=== PATIENT | male | born 1980 | race Caucasian/White ===

== ENCOUNTER 2020-07-15 16:37 | Emergency (ER) | payer SELFPAY ==
[~2020-07-15] VITALS: Ht 188 cm; Wt 102.8 kg
[2020-07-15] MEDS ORDERED: PENI500T PO (17:04)
[2020-07-15] MEDS ORDERED: CHLO15MO2 SWSP (17:04)
[2020-07-15] MEDS ORDERED: NAPR-514 PO (17:04)
--- NOTE | 2020-07-15 17:04 | PHYS DOC ---
Past History Past Medical History: No Pertinent History (ADOLFO CARRION APRN) Past Surgical History: Other Additional Past Surgical Histo: ADNOIDECTOMY; RIGHT EAR SURGERY (ADOLFO CARRION APRN) Alcohol Use: None (ADOLFO CARRION APRN) General Adult EDM: Chief Complaint: DENTAL PROBLEM HPI: HPI: Patient is a 39-year-old male who presents emergency department with complaints of lower posterior left and right dental pain for the last 3 days. Patient states he has been having problems with dental pain for the last year off and on but this time the pain has become more severe over the last 3 days. He denies any fever, nausea, vomiting, sore throat, ear pain, headache, cough, shortness of breath, body aches, or fatigue. Patient currently rates his pain a 10 out of 10 on the pain scale, he reports taking ibuprofen with some relief in his pain. Patient states he is tried taking Tylenol with little to no relief of his pain. (ADOLFO CARRION APRN) Review of Systems: Review of Systems: Complete ROS is negative unless otherwise noted in HPI. (ADOLFO CARRION APRN) Allergies: Allergies: Allergies Coded Allergies Type Severity Reaction Last Updated Verified No Known Drug Allergies 07/15/20 No (ADOLFO CARRION APRN) Physical Exam: PE: See Above Constitutional: Well developed, well nourished, no acute distress, non-toxic appearance. [] HENT: Normocephalic, atraumatic, bilateral external ears normal, nose normal; moist mucous membranes, dental decay with broken teeth present in the right lower quadrant and lower left quadrant, gingival erythema and edema to the lower posterior gingiva bilaterally, no palpable or visible dental abscess [] Eyes: PERRLA, EOMI, conjunctiva normal, no discharge. [] Neck: Normal range of motion, supple, nontender, no stridor. [] Cardiovascular:Heart rate regular rhythm Lungs & Thorax: Respirations even and unlabored, no retractions, no respiratory distress Skin: Warm, dry, no erythema, no rash. [] Neurologic: Alert and oriented X 3, no focal deficits noted. [] Psychologic: Affect normal, judgement normal, mood normal. [] (ADOLFO CARRION APRN) Current Patient Data: Vital Signs: Vital Signs Date Time Temp Pulse Resp B/P (MAP) Pulse Ox O2 Delivery O2 Flow Rate FiO2 07/15/20 16:50 97.7 108 18 136/85 (102) 98 (ADOLFO CARRION APRN) EKG: EKG: [] (ADOLFO CARRION APRN) Radiology/Procedures: Radiology/Procedures: [] (ADOLFO CARRION APRN) Heart Score: Risk Factors: Risk Factors: DM, Current or recent (<one month) smoker, HTN, HLP, family history of CAD, obesity. Risk Scores: Score 0 - 3: 2.5% MACE over next 6 weeks - Discharge Home Score 4 - 6: 20.3% MACE over next 6 weeks - Admit for Clinical Observation Score 7 - 10: 72.7% MACE over next 6 weeks - Early Invasive Strategies (ADOLFO CARRION APRN) Course & Med Decision Making: Course & Med Decision Making Pertinent Labs and Imaging studies reviewed. (See chart for details) 39-year-old male presented to the emergency department complaints of increased dental pain over the last 3 days. Physical exam did not reveal a visible or palpable dental abscess however there is a great amount of gingival erythema and edema with several broken teeth and obvious dental decay. We will treat the patient for dental infection and gingivitis due to these findings. I encouraged patient to follow-up with a dentist for further treatment of his dentalgia and dental decay. I advised the patient that I do not prescribe narcotic medications for treatment of dental pain. Will prescribe penicillin and naproxen for the patient, advised the patient that he may also take Tylenol with the naproxen but should not take ibuprofen while taking naproxen. Patient verbalized an understanding of home care, medications, follow-up, and return to ED instructions and was in agreement with the plan of care. [] (ADOLFO CARRION APRN) Dragon Disclaimer: Kristian Disclaimer: This electronic medical record was generated, in whole or in part, using a voice recognition dictation system. (ADOLFO CARRION APRN) Departure Departure: Impression: Primary Impression: Dentalgia Additional Impressions: Infected dental caries Gingivitis, acute Disposition: 01 DC HOME SELF CARE/HOMELESS Condition: STABLE Referrals: PCP,NO (PCP) Patient Instructions: Dental Caries, Dental Pain, [id number], Gingivitis, E asy-to-Read Additional Instructions: Fill prescription(s) and use as directed. Follow up with dentist using the referral list provided. Return to the ER if symptoms worsen. Scripts Chlorhexidine Gluconate (PERIDEX) 15 Ml Mouthwash 15 ML SWSP BID for gingivitis for 30 Days, #473 ML 0 Refills Be sure to brush your teeth before using this medication as it can cause staining. Do not eat or drink for at least 30 minutes after use. Prov: ADOLFO CARRION APRN 07/15/20 Naproxen (NAPROXEN) 500 Mg Tablet 1 TAB PO BID for pain for 10 Days, #20 TAB 0 Refills Prov: ADOLFO CARRION APRN 07/15/20 Penicillin V Potassium (PENICILLIN V POTASSIUM) 500 Mg Tablet 1 TAB PO QID for dental infection for 7 Days, #28 TAB 0 Refills Prov: ADOLFO CARRION APRN 07/15/20 Attending Signature Attending Signature I have reviewed the PA/HOUSING RELOCATION's note and plan of care. I was available for consultation as needed during the patient's visit in the emergency department. I agree with the clinical impression, plan, and disposition. (MAURI MILLS DO) ADOLFO CARRION APRN Jul 15, 2020 17:04 MAURI MILLS DO Jul 16, 2020 03:49
[2020-07-15 17:10] VITALS: BP 114/86
== END 2020-07-15 17:12 | disposition home or self-care (01) ==
LOC: ER 16:37
DX: K02.9 Dental caries, unspecified (principal); K05.00 Acute gingivitis, plaque induced
CPT/HCPCS: 99283

== ENCOUNTER 2020-08-04 22:38 | Emergency (ER) | payer SELFPAY ==
[~2020-08-04] VITALS: Ht 188 cm; Wt 102.8 kg
[~2020-08-04 22:38] MED LIST: CHLO15MO2 SWSP; NAPR-514 PO; PENI500T PO
[2020-08-04 23:00] VITALS: BP 123/79
[2020-08-05] MEDS ORDERED: DEXAMETHASONE 4 MG TABLET PO ONE
[2020-08-05] MEDS ORDERED: [UNRECOGNIZED DRUG - OTHER] IJ ONE
[2020-08-05] MEDS ORDERED: AMOXICILLIN/K CLAV 875/125MG TABLET. PO ONE
--- NOTE | 2020-08-05 00:22 | PHYS DOC ---
Past History Past Medical History: No Pertinent History Past Surgical History: Other Additional Past Surgical Histo: ADNOIDECTOMY; RIGHT EAR SURGERY Alcohol Use: None General Adult EDM: Chief Complaint: DENTAL PROBLEM HPI: HPI: Patient is a 39 year old male who presents with right lower gum and teeth pain. Patient has been complaining of chronic lower gum and teeth pain for the past few years. He was last seen at [facility] on 07/15/20 for similar pain and discharged with Penicillin VK and chlorhexidine wash. He started takin gthe antibiotics for a day or two then forgot about it. He never followed up with the dentist. Yesterday, pt started to note increasing pain in the right lower jaw along gum line and felt a "knot" on the outside of his cheek. He restarted his penicillin prescription for the past 2 days and ibuprofen with no improvement in pain. He describes the pain as a sharp pain, like a "hot iron" sitting in his mouth. Pain worsens with talking or pressure to the gums. Pt denies fever, cough, congestion, sore throat, nausea, or vomiting. Review of Systems: Review of Systems: Constitutional: Denies fever or chills Eyes: Denies redness or eye pain HENT: + right posterior jaw pain. Denies nasal congestion or sore throat Respiratory: Denies cough or shortness of breath Cardiovascular: Denies chest pain or palpitations Integument: Denies rash or skin lesions Neurologic: Denies headache, focal weakness or sensory changes Complete systems were reviewed and found to be within normal limits, except as documented in this note. Family History: Family History: Non-contributory. Current Medications: Current Meds: Current Medications Medications (Trade) Dose Ordered Sig/Griselda Start Time Stop Time Status Last Admin Dose Admin Amoxicillin/ Clavulanate Potassium (Augmentin 875/ 125mg) 1 tab 1X ONCE 08/04/20 23:45 08/04/20 23:46 UNV Bupivacaine HCl/ Epinephrine Bitart (Sensorcain Epi 0.5%-1:[id number]) 30 ml 1X ONCE 08/04/20 23:45 08/04/20 23:46 UNV Dexamethasone (Decadron) 10 mg 1X ONCE 08/04/20 23:45 08/04/20 23:46 UNV Allergies: Allergies: Allergies Coded Allergies Type Severity Reaction Last Updated Verified No Known Drug Allergies 07/15/20 No Physical Exam: PE: Constitutional: Well developed, well nourished, no acute distress, non-toxic appearance HENT: Normocephalic, atraumatic Eyes: conjunctiva normal, no discharge Mouth: dental caries on multiple teeth, staining and poor general dentition, missing tooth in back left lower jaw, large erythematous area along molars on right lower gum consistent with abscess Neck: Normal range of motion, no tenderness, supple Lungs & Thorax: No respiratory distress, equal chest rise and fall Skin: Warm, dry, no erythema, no rash Neurologic: Alert and oriented X 3, normal motor function, normal sensory function, no focal deficits noted Psychologic: Affect normal, judgment normal Course & Med Decision Making: Course & Med Decision Making Pt is a 39 year old male with chronic dental pain for the past few years. Pt has been taking penicillin for the past 2 days, from a previous visit to [facility] on 07/15/20 for similar pain. Physical exam reveals erythematous area consistent with dental abscess in right lower jaw along molars. Dental block performed and abscess drained in ED. Plan to discharge with Augmentin. Will provide list of dentists for further management of dental pain. Dragon Disclaimer: Dragon Disclaimer: This electronic medical record was generated, in whole or in part, using a voice recognition dictation system. Departure Departure: Impression: Primary Impression: Dental abscess Disposition: 01 DC HOME SELF CARE/HOMELESS Condition: STABLE Referrals: PCP,NO (PCP) Patient Instructions: Dental Abscess Additional Instructions: May also take over the counter Ibuprofen as needed for pain. Scripts Hydrocodone Bit/Acetaminophen (NORCO 5-325 TABLET) 1 Each Tablet 0.5-1 TAB PO Q6HRS PRN for PAIN, #10 TAB Prov: MAURI MILLS DO 08/05/20 Chlorhexidine Gluconate (PERIDEX) 15 Ml Mouthwash 15 ML PO BID for Dental infection for 7 Days, #473 ML 0 Refills Prov: MAURI MILLS DO 08/05/20 Amoxicillin/Potassium Clav (AUGMENTIN 875-125 TABLET) 1 Each Tablet 1 TAB PO BID for Dental infection for 7 Days, #14 TAB 0 Refills Prov: MAURI MILLS DO 08/05/20 MAURI MILLS DO Aug 05, 2020 00:22
[2020-08-05] MEDS ORDERED: AMOX1TAB61 PO (03:31)
[2020-08-05] MEDS ORDERED: CHLO15MO2 PO (03:31)
[2020-08-05] MEDS ORDERED: HYDR-3165 PO (03:31)
== END 2020-08-05 03:35 | disposition home or self-care (01) ==
LOC: ER 22:38
DX: K04.7 Periapical abscess without sinus (principal); K02.9 Dental caries, unspecified
CPT/HCPCS: 41800; 99284; J8540

== ENCOUNTER 2021-12-17 21:58 | Emergency (ER) | payer SELFPAY ==
[~2021-12-17 21:58] MED LIST changes: +AMOX1TAB61 PO; +CHLO15MO2 PO; +HYDR-3165 PO
[2021-12-18] MEDS ORDERED: AMOX1TAB61 PO (16:40)
[2021-12-18] MEDS ORDERED: CHLO15MO2 SWSP (16:40)
== END 2021-12-17 23:00 | disposition left against medical advice (07) ==
LOC: ER 21:58
DX: K08.89 Other specified disorders of teeth and supporting structures (principal); Z53.21 Procedure and treatment not carried out due to patient leaving prior to being seen by health care provider

== ENCOUNTER 2021-12-18 15:39 | Emergency (ER) | payer SELFPAY ==
[~2021-12-18] VITALS: Ht 188 cm; Wt 102.8 kg
[2021-12-18 15:49] VITALS: BP 122/91
[2021-12-18] MEDS ORDERED: CHLO15MO2 SWSP (16:40)
[2021-12-18] MEDS ORDERED: AMOX1TAB61 PO (16:40)
--- NOTE | 2021-12-18 16:42 | PHYS DOC ---
Past History Past Medical History: No Pertinent History Past Surgical History: Other Additional Past Surgical Histo: ADNOIDECTOMY; RIGHT EAR SURGERY Smoking: Cigarettes Alcohol Use: None Drug Use: None Adult General Chief Complaint Chief Complaint: DENTAL PROBLEM HPI HPI Patient is a 41-year-old male who presents to the emergency department with complaints of right lower quadrant abdominal pain and swelling to his right mandible since yesterday evening. Patient states he has a history of dental problems and pain. He denies any injury or trauma to the affected area. I will any fever, nausea, vomiting, diarrhea, sore throat, shortness of breath, or cough. Patient states that the pain does radiate to his right ear. He currently rates pain 10 out of 10 on pain scale, he denies taking anything for pain relief prior to arrival. Review of Systems Review of Systems Complete ROS is negative unless otherwise noted in the HPI. Current Medications Current Medications Current Medications Medications (Trade) Dose Ordered Sig/Griselda Start Time Stop Time Status Last Admin Dose Admin Acetaminophen/ Hydrocodone Bitart (Lortab 5/325) 1 tab 1X ONCE 12/18/21 16:45 12/18/21 16:46 UNV Ibuprofen (Motrin) 600 mg 1X ONCE 12/18/21 16:45 12/18/21 16:46 UNV Allergies Allergies Allergies Coded Allergies Type Severity Reaction Last Updated Verified No Known Drug Allergies 07/15/20 No Physical Exam Physical Exam Constitutional: Well developed, well nourished, moderate distress, grimacing, appears uncomfortable HENT: Normocephalic, atraumatic, bilateral external ears normal, bilateral TMs normal oropharynx moist, no oral exudates, nose normal; gingival erythema to the posterior right mandible, no visible or palpable dental abscess, tooth #30 is broken and missing fragments visible. [] Eyes: PERRLA, EOMI, conjunctiva normal, no discharge. [] Neck: Normal range of motion, no tenderness, supple, no stridor. [] Cardiovascular:Heart rate regular rhythm Lungs & Thorax: Respirations even and unlabored, no retractions and rate Skin: Warm, dry, no erythema, no rash. [] Back: No tenderness, no CVA tenderness. [] Extremities: No tenderness, no cyanosis, no clubbing, ROM intact, no edema. [] Neurologic: Alert and oriented X 3, normal motor function, normal sensory function, no focal deficits noted. [] Psychologic: Affect irritable, judgement normal, mood normal. [] Current Patient Data Vital Signs Vital Signs Date Time Temp Pulse Resp B/P (MAP) Pulse Ox O2 Delivery O2 Flow Rate FiO2 12/18/21 15:49 98.4 73 16 122/91 (101) 99 Room Air EKG EKG [] Radiology/Procedures Radiology/Procedures [] Heart Score C/O Chest Pain: No Course & Med Decision Making Course & Med Decision Making 41-year-old male presented emergency department with reports of acute dental pain since last night in the posterior right lower quadrant. Physical exam is concerning for gingivitis, no visible or palpable dental abscess, prescriptions written for Augmentin and chlorhexidine. Patient was offered a prescription for pain medication and he declined the prescription for pain medication I encouraged her to take Tylenol or ibuprofen as needed for pain. Return to the ER if symptoms worsen or fever develops he was provided with a list of local dentist for follow-up. Patient verbalized an understanding of home care, medications, follow-up, and return to ED instructions and was in agreement with the plan of care. Dragon Disclaimer Dragon Disclaimer This electronic medical record was generated, in whole or in part, using a voice recognition dictation system. Departure Departure: Impression: Primary Impression: Dentalgia Additional Impression: Gingivitis, acute Disposition: 01 HOME / SELF CARE / HOMELESS Condition: STABLE Referrals: PCP,NO (PCP) Patient Instructions: Dental Caries, Gingivitis, [id number] Additional Instructions: Take Tylenol or ibuprofen as needed for pain. Fill prescription(s) and use as directed. Follow up with dentist using the referral list provided. Return to the ER if symptoms worsen. Scripts Chlorhexidine Gluconate (PERIDEX) 15 Ml Mouthwash 15 ML SWSP BID for gingivitis for 30 Days, #473 ML 0 Refills Be sure to brush your teeth before using this medication as it can cause staining. Do not eat or drink for at least 30 minutes after use. Prov: ADOLFO CARRION APRN 12/18/21 Amoxicillin/Potassium Clav (AUGMENTIN 875-125 TABLET) 1 Each Tablet 1 TAB PO BID for infection for 10 Days, #20 TAB 0 Refills Prov: ADOLFO CARRION APRN 12/18/21 Problem Qualifiers ADOLFO CARRION APRN December 18, 2021 16:42
[2021-12-18] MEDS ORDERED: HYDROcodone/APAP 5/325MG 1 TAB TABLET PO ONE (16:45)
[2021-12-18] MEDS ORDERED: IBUPROFEN 600 MG TABLET. PO ONE (16:45)
== END 2021-12-18 16:52 | disposition home or self-care (01) ==
LOC: ER 15:39
DX: K05.10 Chronic gingivitis, plaque induced (principal); F17.210 Nicotine dependence, cigarettes, uncomplicated
CPT/HCPCS: 99283